=== PATIENT | male | born 1955 | race Caucasian/White ===

== ENCOUNTER → 2017-09-18 | Outpatient (CLI) | payer OTHER ==
[~2017-09-18] MED LIST: ACYC800 PO; ASPI325 PO; ATOR40TA PO; Aspir 8181 MG PO; Coenzyme Q10100 M1 PO; Coq-10100 MG PO; HYDACE5 PO; LISI20 PO; LISI5 PO; METCAR500 PO; NIAC500 PO; Nitrostat0.4 MG SL; PRAV20 PO; PRED10 PO
== END | disposition home or self-care (01) ==
LOC: LAB EV 09:32
DX: M54.5 Low back pain (principal); G89.4 Chronic pain syndrome; M51.34 Other intervertebral disc degeneration, thoracic region; M51.35 Other intervertebral disc degeneration, thoracolumbar region; M51.37 Other intervertebral disc degeneration, lumbosacral region
CPT/HCPCS: G0480

== ENCOUNTER → 2021-02-19 | Outpatient (CLI) | payer OTHER | END | disposition home or self-care (01) | LOC: LAB 09:41 → LAB SHORT 09:41 | PROVIDERS: Nurse Practitioner Family | DX: Z76.89 Persons encountering health services in other specified circumstances (principal) | CPT/HCPCS: G0480 ==

== ENCOUNTER → 2023-07-21 | Outpatient (CLI) | payer OTHER ==
[2023-07-21 16:01] LABS: Hematocrit 41.1 % (37.0-53.0); Hemoglobin 14.2 g/dL (13.5-17.5); Mean Corpuscular HGB 32.6 pg (26.0-34.0); Mean Corpuscular HGB Conc 34.5 g/dL (31.5-36.5); Mean Corpuscular Volume 94 fL (80-100); Mean Platelet Volume 9.8 fL (9.1-12.4); Platelet Count 266 K/mm3 (150-400); RDW Coefficient Variation 13.3 % (11.7-14.2); RDW Standard Deviation 46.3 fL (35.1-46.3); Red Blood Cell Count 4.36 M/mm3 (4.30-5.90); White Blood Cell Count 6.53 K/mm3 (4.00-11.30)
[2023-07-21 16:09] LABS: CHOL/HDL RATIO 3.2; Cholesterol 145 mg/dL (50-200); HDL Cholesterol 46 mg/dL (>39); LDL/HDL RATIO 1.7; Low Density Lipoprotein Chol 78 mg/dL (0-110); Prostate Specific Antigen 0.806 ng/mL (0.000-4.000); Triglycerides 104 mg/dL (30-160); Very Low Density Lipoprot Chol 20 mg/dL (6-32)
[2023-07-22 09:11] LABS: A/G RATIO 1.7 (1.2-2.2); BILIRUBIN, TOTAL 0.3 mg/dL (0.0-1.2); CREATININE, SERUM 0.83 mg/dL (0.76-1.27); GLOBULIN, TOTAL 2.7 g/dL (1.5-4.5); POTASSIUM, SERUM 4.7 mmol/L (3.5-5.2); PROTEIN, TOTAL, SERUM 7.4 g/dL (6.0-8.5)
== END | disposition home or self-care (01) ==
LOC: LAB SHORT 10:23 → LAB 10:23
PROVIDERS: Family Medicine
DX: E78.2 Mixed hyperlipidemia (principal); N40.0 Benign prostatic hyperplasia without lower urinary tract symptoms
CPT/HCPCS: 36415; 80053; 80061; 84153; 85027

== ENCOUNTER 2024-10-23 06:54 | Day surgery (SDC) | payer OTHER ==
[2024-10-23] VITALS (9 sets, daily range): BP systolic 114–160; BP diastolic 69–102
[~2024-10-23] VITALS: Ht 172.7 cm; Wt 91.0 kg
[~2024-10-23 06:54] MED LIST changes: +HYDR1TAB94 PO; +LATA.005SO RIGHTEYE
[2024-10-23] MEDS ORDERED: Verapamil HCL 2.5 MG/ML 2ML Injection ONE (07:16)
[2024-10-23] MEDS ORDERED: Heparin Sodium 1000 Units/ML 10ML MDV ONE ×2 (07:16→09:02)
[2024-10-23] MEDS ORDERED: NS 250 ML IV ONE (07:17)
[2024-10-23] MEDS ORDERED: NS 1,000 ML IV ONE ×2 (07:17→08:14)
[2024-10-23] MEDS ORDERED: Nitroglycerin 2 MG/20 ML BTL ONE (07:17)
[2024-10-23] MEDS ORDERED: ATEN25 PO (07:25)
[2024-10-23] MEDS ORDERED: FentaNYL Citrate 50 MCG/ML 2 ML Injection ONE (08:14)
[2024-10-23] MEDS ORDERED: Midazolam HCl 1MG / ML 2ML Vial ONE (08:14)
[2024-10-23] MEDS ORDERED: Ticagrelor 90 MG TABLET ONE (08:59)
--- NOTE | 2024-10-23 12:05 | NUR ---
10CC AIR REMOVED FROM R WRIST TR BAND. NEG BLEEDING OR SWELLING.
[2024-10-23] MEDS ORDERED: CLOP75 PO (13:18)
--- NOTE | 2024-10-23 13:38 | NUR ---
PT AND FAMILY VERBALIZED UNDERSTANDING OF WRITTEN AND VERBAL D/C INST. IV REMOVED. R WRIST TR BAND REMOVED AND PUNCTURE AREA CLEANED /C NS. AREA DRESSED /C CLOTH DOT DRSG. R WRIST SPLINT REAPPLIED. PT TAKEN OUT OF THE HRT CENTER VIA W/C.
== END 2024-10-23 13:35 | disposition home or self-care (01) ==
LOC: MHTC 06:54
DX: I25.10 Atherosclerotic heart disease of native coronary artery without angina pectoris (principal); I35.0 Nonrheumatic aortic (valve) stenosis; I10 Essential (primary) hypertension; E78.5 Hyperlipidemia, unspecified; Z79.82 Long term (current) use of aspirin; Z79.899 Other long term (current) drug therapy; Z88.8 Allergy status to other drugs, medicaments and biological substances; F17.210 Nicotine dependence, cigarettes, uncomplicated
CPT/HCPCS: 76937; 85347; 92978; 93454; 93571; 99152; 99153; A9270; C1725; C1753; C1769; C1874; C1887; C1894; C9600; J1644; J2250; J3010; J7030; J7050; Q9967